=== PATIENT | male | born 1950 | race Caucasian/White ===

== ENCOUNTER 2018-09-09 12:11 | Emergency (ER) | payer OTHER ==
[~2018-09-09] VITALS: Ht 190.5 cm; Wt 112.0 kg
[2018-09-09 12:22] VITALS: BP 107/50
[2018-09-09 12:47] LABS: ABSOLUTE NEUTROPHILS 3.8 thou/uL (1.4-8.2); BASOPHILS 0.5 % (0.0-2.0); EOSINOPHILS 19.5 % (0.0-3.0); HEMATOCRIT 37.9 % (42.0-52.0); HEMOGLOBIN 13.1 gm/dL (14.0-18.0); LYMPHOCYTES 18.6 % (24.0-44.0); MCH 33.3 pg (26.0-34.0); MCHC 34.4 g/dL (28.0-37.0); MCV 96.7 fL (80.0-100.0); MONOCYTES 7.5 % (1.0-8.0); PLATELET COUNT 199 thou/uL (150-400); POLYS 53.9 % (36.0-66.0); RBC 3.92 mil/uL (4.50-6.00); RDW 13.3 % (10.5-14.5)
[2018-09-09] MEDS ORDERED: ALBUTEROL2.5 MG/31 INH (12:53)
[2018-09-09] MEDS ORDERED: AZITHROMYCIN 2250 MG PO (12:53)
[2018-09-09] MEDS ORDERED: ASPIR 8181 MG PO (12:53)
[2018-09-09] MEDS ORDERED: ACCUNEB SO1.25 MG/1 INH (12:53)
[2018-09-09] MEDS ORDERED: VITAMIN D1000 UNI1 PO (12:54)
[2018-09-09] MEDS ORDERED: ALL DAY ALLERGY10 M3 PO (12:54)
[2018-09-09] MEDS ORDERED: VITAMIN B-121000 MC3 PO (12:54)
[2018-09-09 12:55] LABS: ANION GAP 9 mmol/L (7-16); BUN 13 mg/dL (7-18); CALCIUM 9.2 mg/dL (8.5-10.1); CHLORIDE 101 mmol/L (98-107); CO2 29 mmol/L (21-32); CREATININE 1.3 mg/dL (0.7-1.3); GLUCOSE 113 mg/dL (74-106); POTASSIUM 4.1 mmol/L (3.5-5.1); SODIUM 139 mmol/L (136-145)
[2018-09-09] MEDS ORDERED: DEXILANT60 MG PO (12:55)
[2018-09-09] MEDS ORDERED: IRON325 PO (12:55)
[2018-09-09] MEDS ORDERED: FOLIC ACID1 MG PO (12:55)
[2018-09-09] MEDS ORDERED: BENTYL 20 MG TA20 M1 PO (12:55)
[2018-09-09] MEDS ORDERED: FLUOCINONI0.05 %/31 TOP (12:55)
[2018-09-09] MEDS ORDERED: HYDROXYZINE HCL25 M1 PO (12:56)
[2018-09-09] MEDS ORDERED: IPRATROPIU0.2 MG/1 M INH (12:56)
[2018-09-09] MEDS ORDERED: NEURONTIN 300300 M1 PO (12:56)
[2018-09-09] MEDS ORDERED: SYNTHROID175 MCG PO (12:56)
[2018-09-09] MEDS ORDERED: LASIX 40 MG TAB40 M2 PO (12:56)
[2018-09-09] MEDS ORDERED: MELATONIN3 MG PO (12:57)
[2018-09-09] MEDS ORDERED: UNICOMPLEX M TA1 TA1 PO (12:57)
[2018-09-09] MEDS ORDERED: MUPIROCIN15 GM TOP (12:58)
[2018-09-09] MEDS ORDERED: NICOTINE PATCH1 EAC2 TRANSDERM (12:58)
[2018-09-09] MEDS ORDERED: STIOLTO RESPIMAT4 GM INH (12:59)
[2018-09-09] MEDS ORDERED: MIRAPEX1 MG PO (12:59)
[2018-09-09] MEDS ORDERED: PREDNISONE 20 M20 MG PO (12:59)
[2018-09-09] MEDS ORDERED: PINDOLOL10 MG PO (12:59)
[2018-09-09] MEDS ORDERED: EFFEXOR XR37.5 MG PO (13:00)
[2018-09-09] MEDS ORDERED: CRESTOR40 MG PO (13:00)
[2018-09-09] MEDS ORDERED: VITAMIN B-1100 M1 PO (13:00)
[2018-09-09] MEDS ORDERED: VITAMIN B-150 M1 PO (13:00)
[2018-09-09] MEDS ORDERED: HYDROXYZINE HCL10 M1 PO (13:01)
[2018-09-09] MEDS ORDERED: MOBIC15 MG PO (13:01)
[2018-09-09] MEDS ORDERED: TERAZOSIN HCL5 MG PO (13:01)
[2018-09-09 13:05] LABS: TROPONIN-I <0.06 ng/mL (<0.06)
[2018-09-09 14:24] VITALS: BP 119/71
[2018-09-09 14:33] VITALS: BP 119/93
[2018-09-09 15:08] VITALS: BP 102/84
[2018-09-09] MEDS ORDERED: PROAIR HFA8.5 GM INH (15:48)
--- NOTE | 2018-09-09 17:31 | EKG ---
[address] [address] ELECTROCARDIOGRAM REPORT Name: BRANDIE BERNSTEIN Room #: [facility]#: [id number] ������������������ Admission: 09/09/18 ������������������ Attend Phys: Discharge: 09/09/18 ������������������ Date of : 46 Report #: [id number] ����������������������������������������������������������������� [id number] THIS REPORT FOR: //name// [facility] ED Test Date: 2018-09-09 Test Time: 12:19:06 Pat Name: BRANDIE BERNSTEIN Department: Room: [facility] Gender: M Senior Sales Administrator: KKODJOVI : 1950 Requested By: Fuad Go Order Number: [id number] MD: Pete Ruvalcaba Measurements Intervals [place] Rate: 50 P: 46 GA: 199 QRS: 0 QRSD: 121 T: 35 QT: 444 QTc: 405 Interpretive Statements Sinus rhythm Nonspecific intraventricular conduction delay Compared to ECG 01/10/2010 09:41:57 Nonspecific intraventricular conduction delay is now present Electronically Signed On 09-09-2018 17:31:48 PHARMACIST INTERN by Pete Ruvalcaba [email or web address] ��������������������������������������������� <ELECTRONICALLY SIGNED> ���������������������������������������� By: Pete Ruvalcaba MD, [facility] ��������������������������������������������� 09/09/18 1731 1218 18 Pete Ruvalcaba MD, FACC /EPI
--- NOTE | 2018-09-09 17:32 | EKG ---
[address] [place] [address] ELECTROCARDIOGRAM REPORT Name: BRANDIE BERNSTEIN Room #: [facility]#: [id number] ������������������ Admission: 09/09/18 ������������������ Attend Phys: Discharge: 09/09/18 ������������������ Date of : 46 Report #: [id number] ����������������������������������������������������������������� [id number] THIS REPORT FOR: //name// [facility] ED Test Date: 2018-09-09 Test Time: 13:49:26 Pat Name: BRANDIE BERNSTEIN Department: Room: [facility] Gender: M News Copy Editor: ELOINA : 1950 Requested By: Fuad Go Order Number: [id number] MD: Pete Ruvalcaba Measurements Intervals [place] Rate: 53 P: 38 AR: 204 QRS: -3 QRSD: 105 T: 34 QT: 437 QTc: 411 Interpretive Statements Sinus bradycardia Left ventricular hypertrophy Compared to ECG 01/10/2010 09:41:57 No significant change was found Electronically Signed On 09-09-2018 17:32:47 ANIMAL HUSBANDRY TECHNICIAN by Pete Ruvalcaba [email or web address] ��������������������������������������������� <ELECTRONICALLY SIGNED> ���������������������������������������� By: Pete Ruvalcaba MD, [facility] ��������������������������������������������� 09/09/18 1732 1349 1349 Pete Ruvalcaba MD, FACC /EPI
== END 2018-09-09 15:10 | disposition left against medical advice (07) ==
LOC: ER 12:11 → EROBS 14:02 → ER 14:02
PROVIDERS: Emergency Medicine
DX: R07.89 Other chest pain (principal); J44.9 Chronic obstructive pulmonary disease, unspecified; G20 Parkinson's disease; Z87.891 Personal history of nicotine dependence; Z88.8 Allergy status to other drugs, medicaments and biological substances